=== PATIENT | female | born 1975 | race Caucasian/White ===

== ENCOUNTER 2017-04-14 22:24 | Emergency (ER) | payer OTHER ==
[~2017-04-14] VITALS: Ht 162.6 cm; Wt 57.2 kg
[2017-04-14] MEDS ORDERED: SYNTHROID75 MCG ORAL (22:39)
[2017-04-14 22:50] VITALS: BP 108/60
[2017-04-14] MEDS ORDERED: DOXYCYCLINE MO100 MG ORAL (23:14)
[2017-04-14] MEDS ORDERED: METRONIDAZOLE500 MG ORAL (23:14)
[2017-04-14 23:40] VITALS: BP 110/63
[2017-04-14] MEDS ORDERED: Lidocaine 1% MPF 10mg/ml 5ml IM ONE (23:45)
--- NOTE | 2017-04-15 00:43 | Emergency Room Report ---
History of Present Illness General Chief Complaint: Female Urogenital Problems Source: Patient Present Illness HPI Patient is a a 41-year-old female presented after increased vaginal discharge as well as itching. Patient reported having increased symptoms of the past 2 days after having a protected sex. Patient reports having some greenish discharge. She denied any fever. She been vomiting. Allergies: Coded Allergies: No Known Allergies (Unverified , 04/14/17) Patient History Past Medical History: see triage record Last Menstrual Period: March Reviewed Nursing Documentation: PMH: Agreed, PSxH: Agreed Review of Systems All Other Systems: negative except mentioned in HPI Physical Exam Vital Signs Date Time Temp Pulse Resp B/P Pulse Ox O2 Delivery O2 Flow Rate FiO2 04/14/17 22:33 97.5 78 16 102/59 99 Room Air General Appearance: well appearing, no apparent distress, alert, GCS 15 Head: normocephalic, atraumatic ENT: hearing grossly normal, normal voice Neck: full range of motion, supple Respiratory: no respiratory distress, speaking full sentences Cardiovascular #1: normal inspection Musculoskeletal: no calf tenderness Neurologic: normal gait Psychiatric: mood/affect normal Skin: no rash Medical Decision Making Diagnostic Impression: Primary Impression: Urethritis ER Course Patient was presented for genital discharge. Differential diagnosis include was not limited to gonorrhea, Chlamydia, bacterial vaginosis, Trichomonas among others. Patient's benign exam and does not appear to require any further imaging or laboratory testing at this time. urine test was negative. The patient was advised to have outpatient STD testing to include HIV testing. The patient was given prescription for doxycycline after given Rocephin IM. She's also given prescription for Flagyl. Labs Test 04/14/17 22:55 Urine HCG, Qualitative Negative Last Vital Signs Date Time Temp Pulse Resp B/P Pulse Ox O2 Delivery O2 Flow Rate FiO2 04/14/17 23:40 98.4 82 15 110/63 100 Room Air Status: improved Disposition: HOME, SELF-CARE Condition: Stable Scripts Doxycycline Monohydrate* (DOXYCYCLINE MONOHYDRATE*) 100 Mg Capsule 100 MG ORAL Q12H, #14 CAP 0 Refills Prov: Maicol Benson 04/14/17 Metronidazole* (FLAGYL*) 500 Mg Tablet 500 MG ORAL EVERY 12 HOURS, #20 TAB Prov: Maicol Benson 04/14/17 Patient Instructions: Urethritis, Adult, Vaginitis Maicol Benson Apr 15, 2017 00:43
== END 2017-04-14 23:40 | disposition home or self-care (01) ==
LOC: EMR 22:51
DX: N34.2 Other urethritis (principal); R11.10 Vomiting, unspecified
CPT/HCPCS: 81025; 96372; 99284; J0696

== ENCOUNTER 2017-09-25 00:11 | Emergency (ER) | payer MEDICAID, OTHER ==
[~2017-09-25] VITALS: Ht 162.6 cm; Wt 57.2 kg
[~2017-09-25 00:11] MED LIST: DOXYCYCLINE MO100 MG ORAL; METRONIDAZOLE500 MG ORAL; SYNTHROID75 MCG ORAL
[2017-09-25] MEDS ORDERED: Lidocaine HCl 2% Jelly 5ml Tube TOPIC ONE (02:45)
[2017-09-25 03:04] LABS: APPEARANCE,URINE CLEAR; BILIRUBIN, URINE NEGATIVE (NEGATIVE); COLOR,URINE PALE YELLOW; GLUCOSE, URINE (UA) NEGATIVE (NEGATIVE); KETONES,URINE NEGATIVE (NEGATIVE); LEUKOCYTE ESTERASE ,URINE NEGATIVE (NEGATIVE); NITRITE,URINE NEGATIVE (NEGATIVE); PH,URINE 6 (4.5-8.0); PROTEIN,URINE NEGATIVE (NEGATIVE); UROBILINOGEN,URINE NORMAL MG/DL (0.0-1.0)
--- NOTE | 2017-09-25 03:12 | Emergency Room Report ---
History of Present Illness General Chief Complaint: Female Urogenital Problems Source: Patient Present Illness HPI Is a 42-year-old female with no past medical history. She presents with chief complaint of vaginal itching and pain. Been ongoing for last 3-4 days. She has rash and redness. This occurred shortly after unprotected sex with a male partner. Denies any discharge. No nausea no vomiting. Does have dysuria. Pain is 10 out of 10 the Allergies: Coded Allergies: No Known Allergies (Unverified , 04/14/17) Patient History Past Medical History: see triage record, old chart reviewed Past Surgical History: none Pertinent Family History: none Social History: Denies: smoking Last Menstrual Period: Aug Now: No Immunizations: other Reviewed Nursing Documentation: PMH: Agreed, PSxH: Agreed Review of Systems Eye: Denies: eye pain, blurred vision ENT: Denies: ear pain, nose congestion, throat swelling Respiratory: Denies: cough, shortness of breath Cardiovascular: Denies: chest pain, palpitations Gastrointestinal: Denies: abdominal pain, diarrhea, nausea, vomiting Genitourinary: Reports: dysuria Musculoskeletal: Denies: back pain, joint pain Skin: Denies: rash Neurological: Denies: headache, numbness Endocrine: Denies: increased thirst, increased urine Hematologic/Lymphatic: Denies: easy bruising All Other Systems: negative except mentioned in HPI Physical Exam Vital Signs Date Time Temp Pulse Resp B/P (MAP) Pulse Ox O2 Delivery O2 Flow Rate FiO2 09/25/17 00:40 98.2 73 16 93/65 99 vitals normal Sp02 EP Interpretation: reviewed, normal General Appearance: well appearing, no apparent distress, alert Head: normocephalic, atraumatic Eyes: bilateral eye PERRL, bilateral eye EOMI ENT: hearing grossly normal, normal pharynx Neck: full range of motion, supple, no meningismus Respiratory: chest non-tender, lungs clear, normal breath sounds Cardiovascular #1: regular rate, rhythm, no murmur Gastrointestinal: normal bowel sounds, non tender, no mass, no organomegaly, no bruit, non-distended Genitourinary: other - Pelvic exam 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 Externally, there is erythema in a circular lesion mostly on the right side. I did not do an internal speculum exam because of this. Musculoskeletal: back normal, gait/station normal, normal range of motion Neurologic: alert, oriented x3 Psychiatric: mood/affect normal Skin: warm/dry Medical Decision Making Diagnostic Impression: Primary Impression: Genital herpes Qualified Codes: A60.04 - Herpesviral vulvovaginitis ER Course Patient presents with symptoms consistent with genital herpes. She is not . No evidence of deep infection. We'll discharge home with Valtrex. Last Vital Signs Date Time Temp Pulse Resp B/P (MAP) Pulse Ox O2 Delivery O2 Flow Rate FiO2 09/25/17 00:40 98.2 73 16 93/65 99 Status: improved Disposition: HOME, SELF-CARE Condition: Stable Scripts Valacyclovir Hcl* (VALTREX*) 500 Mg Tablet 1000 MG ORAL TWICE A DAY for 7 Days, TAB Prov: SAVANNAH DON M.D. 09/25/17 Additional Instructions: Followup with your DrRadha in 7 days. I recommend outpatient testing for HIV, hepatitis, syphilis and other STDs. This can be done anonymously. Return if worse. SAVANNAH DON M.D. Sep 25, 2017 03:12
[2017-09-25] MEDS ORDERED: VALACYCLOVIR500 MG ORAL (03:17)
[2017-09-25 03:32] VITALS: BP 98/60
[2017-09-25 03:34] VITALS: BP 98/60
== END 2017-09-25 03:34 | disposition home or self-care (01) ==
LOC: EMR 02:10
DX: A60.00 Herpesviral infection of urogenital system, unspecified (principal)
CPT/HCPCS: 81003; 81025; 87210; 99284